=== PATIENT | female | born 1995 | race Two or more races ===

== ENCOUNTER 2023-03-20 17:59 | Emergency (ER) | payer OTHER ==
[~2023-03-20] VITALS: Ht 147.3 cm; Wt 55.8 kg
[2023-03-20 18:37] LABS: HEMATOCRIT 34.9 % (36.0-45.00); MEAN CELL VOLUME 91.9 fL (80.00-100.00); MEAN CORPUSCULAR HEMOGLOBIN 31.6 pg (27.00-32.0); MEAN CORPUSCULAR HGB CONC 34.4 g/dl (32.0-36.0); PLATELET COUNT 234 K/uL (150-450); RED BLOOD COUNT 3.79 M/uL (4.00-6.00); RED CELL DISTRIBUTION WIDTH 13.8 % (11.5-14.5)
[2023-03-20 18:39] LABS: URINE APPEARANCE Clear; URINE BILIRRUBIN Negative (NEGATIVE); URINE BLOOD Small; URINE COLOR Yellow; URINE GLUCOSE Negative (NEGATIVE); URINE LEUKOCYTE Negative; URINE NITRATE Negative; URINE PROTEIN Negative (NEGATIVE)
[2023-03-20 18:43] LABS: URINE BACTERIA 459.8 uL (0.0-1933); URINE EPITHELIAL CELLS 17.9 uL (0.0-38.8); URINE WBC 12.8 uL (0.0-23.2)
[2023-03-20 19:05] LABS: CALCIUM 9.1 mg/dL (8.5-10.1); CREATININE SERUM 0.58 mg/dL (0.55-1.02); GFR 126.67; POTASSIUM 3.44 mEq/L (3.5-5.1)
== END 2023-03-20 19:41 | disposition home or self-care (01) ==
LOC: ER 17:59 → EDBD 17:59 → ER 18:06
PROVIDERS: Emergency Medicine
DX: K29.70 Gastritis, unspecified, without bleeding (principal)